=== PATIENT | female | born 1965 | race Caucasian/White ===

== ENCOUNTER → 2024-02-10 15:18 | Outpatient (REF) | payer OTHER, SELFPAY | LOC: RAD 15:18 | PROVIDERS: ATTENDING PHYSICIAN Physician Assistant | DX: Z91.81 History of falling (principal) | CPT/HCPCS: 73564 ==

== ENCOUNTER 2024-04-13 06:14 | Day surgery (SDC) | payer OTHER, SELFPAY ==
[2024-04-13 07:05] VITALS: BP 135/85
[2024-04-13 07:10] VITALS: BMI 36.8
[2024-04-13 07:20] VITALS: BMI 36.8
[2024-04-13 08:47] VITALS: BP 110/70
[2024-04-13 09:00] VITALS: BP 119/73
[2024-04-13 09:15] VITALS: BP 138/89
== END 2024-04-13 09:19 | disposition home or self-care (01) ==
LOC: SDS 06:14
PROVIDERS: ATTENDING PHYSICIAN Internal Medicine Gastroenterology; FAMILY PHYSICIAN Physician Assistant
DX: Z12.11 Encounter for screening for malignant neoplasm of colon (principal); K63.89 Other specified diseases of intestine; K57.30 Diverticulosis of large intestine without perforation or abscess without bleeding; K64.0 First degree hemorrhoids; Z86.010 Personal history of colon polyps; Z98.890 Other specified postprocedural states
CPT/HCPCS: 45380; 88305

== ENCOUNTER → 2024-09-20 10:11 | Outpatient (REF) | payer OTHER, SELFPAY | LOC: RAD 10:11 | PROVIDERS: ATTENDING PHYSICIAN Physician Assistant | DX: M79.671 Pain in right foot (principal) | CPT/HCPCS: 73630 ==

== ENCOUNTER → 2024-11-05 12:54 | Outpatient (REF) | payer OTHER, SELFPAY | LOC: WDC 12:54 | PROVIDERS: ATTENDING PHYSICIAN Obstetrics & Gynecology; FAMILY PHYSICIAN Physician Assistant | DX: Z12.31 Encounter for screening mammogram for malignant neoplasm of breast (principal) | CPT/HCPCS: 77063; 77067 ==

== ENCOUNTER 2025-04-19 06:15 | Day surgery (SDC) | payer OTHER, SELFPAY | END 2025-04-19 08:47 | disposition home or self-care (01) | LOC: GI 06:15 | PROVIDERS: ATTENDING PHYSICIAN Surgery | DX: Z12.11 Encounter for screening for malignant neoplasm of colon (principal); K57.30 Diverticulosis of large intestine without perforation or abscess without bleeding; Z86.0101 Personal history of adenomatous and serrated colon polyps | CPT/HCPCS: G0105 ==

== ENCOUNTER → 2025-11-08 12:23 | Outpatient (REF) | payer OTHER, SELFPAY | LOC: WDC 12:23 | PROVIDERS: ATTENDING PHYSICIAN Obstetrics & Gynecology; FAMILY PHYSICIAN Physician Assistant | DX: Z12.31 Encounter for screening mammogram for malignant neoplasm of breast (principal) | CPT/HCPCS: 77063; 77067 ==